=== PATIENT | male | born 1995 | race Caucasian/White ===

== ENCOUNTER 2019-08-03 18:34 | Emergency (ER) | payer MEDICAID, SELFPAY ==
[2019-08-03 18:53] VITALS: BP 142/92; PULSE 88; RESP 17; TEMP 36.6; O2SAT 97; BMI 35.4
--- NOTE | 2019-08-03 19:07 | ED_ITS ---
Entered by Phuong Alva, acting as scribe for Sammy Liu DO Aug 03, 2019 18:34 HPI - Psych General: Chief Complaint: Psychiatric Symptoms Stated Complaint: OUT OF PSYCH MEDS Time Seen by Provider: 08/03/19 19:06 Source: patient Mode of arrival: ambulatory Limitations: no limitations History of Present Illness: HPI Narrative: 23 yo Male presents to ED with complaint of being out of his psychiatric medications. Pt's family states that the patient is out of his psych meds, specifically his Geodon. Pt's family states that the patient was being seen at [facility] but missed appointments due to his family member's work schedule and they put him on walk-in so the patient decided that he wanted to find a new doctor. Pt's family states that they just need some medications to get the patient by until they can get into a new physician. 120mg at bedtime Geodon .2 mg at bedtime Dagmar HAYWARD complaint: other (out of medications) Onset (ago): day(s) (ran out of medications today) Duration: constant History of same: No Relieving factors: medication Exacerbating factors: none Associated psychiatric symptoms: none Associated symptoms: Reports no associated symptoms Treatments prior to arrival: none Review of Systems General: Reports: 10 or more systems reviewed and unremarkable except in HPI and below Const: Denies: fever, chills or body aches Eyes: Denies: change in vision, blurry vision or blind spots ENMT: Denies: throat pain, enlarged tonsils, painful swallowing or hoarseness Card: Denies: chest pain, palpitations or irregular heart rhythm Resp: Denies: shortness of breath, productive cough or non-productive cough GI: Denies: abdominal pain, nausea or vomiting : Denies: flank pain, difficulty urinating, painful urination, urinary frequency or urinary urgency Musc: Denies: neck pain, back pain, extremity pain, extremity swelling or joint pain Skin/Breast: Denies: rash, itching or redness Neuro: Denies: headache, numbness in extremities or weakness in extremities Endo: Denies: excessive urination, excessive thirst or tired all the time PFSH ED PFSH: Statuses (acute, chronic, etc) shown below reflect problem list status as previously entered and may not be historically accurate Social History Smoking and tobacco status: never smoked Physical Exam Const: COMMON NORMALS: no apparent distress, average body habitus, oriented x3, no limitations, healthy appearing, alert and well nourished HENMT: COMMON NORMALS: normocephalic, head/scalp atraumatic, hearing grossly normal bilaterally, external ears normal, EAC's normal, TM's normal bilaterally, external nose normal, nasal mucous membranes and turbinates normal, moist oral mucous membranes, oropharynx normal, dentition normal and gingiva normal HEAD & SCALP: normocephalic and atraumatic NOSE: external nose normal and nasal mucous membranes and turbinates normal EXTERNAL EAR: Yes external ears normal EXTERNAL AUDITORY CANAL: EAC's normal TYMPANIC MEMBRANE: TM's normal bilaterally Eye: COMMON NORMALS: PERRL, EOMs intact bilaterally, conjunctivae normal, no scleral icterus, no papilledema, normal visual rashid by confrontation and fundi normal bilaterally CONJUNCTIVA: Yes conjunctivae normal PUPIL: Yes PERRL DIRECT OPHTHALMOSCOPY: Yes no papilledema and Yes fundi normal bilaterally Neck/C-Spine: COMMON NORMALS: full ROM, no lymphadenopathy, supple, no meningeal signs, no JVD, thyroid normal and no carotid bruits THYROID: thyroid normal Chest: COMMONS NORMALS: inspection of chest normal and palpation of chest normal Resp: COMMON NORMALS: normal respiratory effort, no retractions, no use of accessory muscles, clear to auscultation bilaterally and percussion normal AUSCULTATION: clear to auscultation bilaterally PERCUSSION: percussion normal Cardio: COMMON NORMALS: no JVD, regular rate, regular rhythm, S1 normal heart sound, S2 normal heart sound, no gallops, no clicks, no murmurs, no rub and peripheral pulses 2+ throughout RATE: regular rate RHYTHM: regular rhythm HEART SOUNDS: S1 normal and S2 normal PERIPHERAL PULSES: pulses 2+ throughout GI: COMMON NORMALS: normal to inspection, nondistended, normoactive bowel sounds, soft to palpation, non-tender, no hepatosplenomegaly, no masses and no bruits PALPATION: Yes soft and Yes no hepatosplenomegaly : COMMON NORMALS: Yes no CVA tenderness BLADDER/KIDNEY EXAM: Yes no CVA tenderness Back/Pelvis: COMMON NORMALS: no CVA tenderness, thoracic and lumbar spine normal to inspection, no thoracic nor lumbar tenderness, thoraco-lumbar ROM normal and straight leg raise negative bilaterally Extremity: COMMON NORMALS: normal to inspection, full ROM, normal capillary refill, no joint enlargement, no clubbing, cyanosis or edema, no calf tenderness and no pedal edema Neuro: COMMON NORMALS: oriented x3 SENSORIUM/ORIENTATION: Yes alert MENINGEAL SIGNS: Yes no meningeal signs Skin: COMMON NORMALS: no rashes or lesions noted, no wounds, skin turgor normal, no jaundice, no petechiae and no mottling GENERAL SKIN EXAM: no rashes or lesions noted and turgor normal Discharge Plan Discharge Patient Disposition: Home, Self-Care Clinical Impression: Chronic schizophrenia Condition: Stable Prescriptions: New clonidine HCl 0.2 mg tablet 0.2 mg PO .HS Qty: 10 RF: 0 Geodon 60 mg capsule 120 mg PO .HS Qty: 20 RF: 0 No Action clonidine HCl 0.2 mg Tablet 0.2 mg PO BEDTIME RF: 0 Geodon 60 mg Capsule 120 mg PO BEDTIME RF: 0 Discharge Orders: Discharge Order (Routine); Ordered 08/03/19 Ordered By: Sammy Liu Referrals: Clark Marcelino DO [Primary Care Provider] - Discharge Diet: Usual diet Discharge Activity: Resume usual activity Coding Level of Care Code ED Data Collector for Chg Fwd Exam Problem Focused The documentation recorded by the Nida kemp Carmen, accurately reflects the service I personally performed and the decisions made by , Sammy Liu DO Aug 03, 2019 18:34
--- NOTE | 2019-08-03 19:19 | PC.NURSE ---
Patient has no psychiatric complaints at this time. Presented to ED only for medication refill due to patient recently change primary physicians and ran out of psychiatric medications. Patient calm, cooperative, and appropriate during assessment.
[2019-08-03] MEDS: cloNIDine 0.1 mg Tablet 0.2 MG PO (19:50)
[2019-08-03] MEDS: ziprasidone hcl 60 mg Capsule 120 MG PO (19:51)
[2019-08-03 19:57] VITALS: BP 147/94; PULSE 95; RESP 20; O2SAT 97
== END 2019-08-03 19:47 | disposition home or self-care (01) ==
PROVIDERS: Emergency Provider Family Medicine; PCP Family Medicine
DX: F20.89 Other schizophrenia (principal)
CPT/HCPCS: 99281

== ENCOUNTER 2021-06-09 21:44 | Emergency (ER) | payer MEDICAID, SELFPAY ==
[2021-06-09 21:50] VITALS: BP 161/83; PULSE 105; RESP 18; TEMP 36.6; O2SAT 98; BMI 32.8
--- NOTE | 2021-06-09 21:58 | ED_ITS ---
HPI - Abdominal Pain General: Chief Complaint: Abdominal Pain Stated Complaint: Abd Pain-Vomits vomit Time Seen by Provider: 06/09/21 21:46 History of Present Illness: HPI narrative: Patient is a 25-year-old male comes to the ED with abdominal pain, nausea and vomiting. Patient said he has been having this kind of abdominal symptoms for the past 5 to 6 months. He states that some foods cause him to have bad acid reflux, abdominal pain and sometimes some nausea with vomiting. He saw his PCP approximately 3 days ago and they put him on Prilosec to help with his acid reflux and he has been taking it now for the past couple days. Patient notices after he eats spicy or acidic type foods he develops symptoms. Tonight he was eating some Thanksgiving day food and started developing some abdominal pain along with nausea. Abdominal pain was centrally located and also had some burning epigastric pain as well right after eating. He had an episode of emesis and then felt a lot better. Here in the ED he says he is not having any abdominal pain, nausea or acid reflux symptoms. Patient admits to drinking a lot of soda and eating a lot of chocolate candy over the past couple days. Denies any fever, chills, bladder or bowel symptoms. Associated Symptoms: Reports heartburn (Resolved before coming to ED), nausea (Resolved before coming to ED) and vomiting (Resolved before coming to ED); Denies chills, constipation, diarrhea, dysuria, fever(s), hematochezia and hematuria Review of Systems Const: Denies: fever(s), chills or fatigue Eyes: Denies: change in vision or eye discomfort ENMT: Denies: throat pain, odynophagia, nasal discharge or nasal congestion Card: Denies: chest pain, palpitations, edema, swelling of feet/ankles, dyspnea on exertion or orthopnea Resp: Denies: dyspnea, productive cough or non-productive cough GI: Reports: abdominal pain (Resolved before coming to ED), nausea (Resolved before coming to ED), vomiting (Resolved before coming to ED) and heartburn (Resolved before coming to ED); Denies: diarrhea, constipation or hematochezia : Denies: flank pain, difficulty urinating, dysuria or hematuria Musc: Denies: neck pain, back pain or extremity swelling Skin/Breast: Denies: rash or new lesions Neuro: Denies: headache(s), numbness in extremities or weakness in extremities PFSH ED PFSH: Social History Smoking and tobacco status: never smoked Physical Exam Const: COMMON NORMALS: no acute distress, patient oriented x3, healthy appearing and alert GENERAL APPEARANCE: cooperative and comfortable HENMT: COMMON NORMALS: normocephalic HEAD & SCALP: normocephalic MOUTH: Normal oral and palatal mucosa present THROAT: posterior oropharynx normal and uvula midline Neck/C-Spine: COMMON NORMALS: supple GENERAL: Yes normal visual inspection Resp: COMMON NORMALS: normal respiratory effort, No retractions, No use of accessory muscles and clear to auscultation bilaterally AUSCULTATION: clear to auscultation bilaterally Cardio: COMMON NORMALS: regular rate, regular rhythm, S1 normal heart sound present, S2 normal heart sound present, No gallops present (Cardio), No clicks present (Cardio), No murmurs present (Cardio) and Peripheral pulses 2+ throughout RATE: regular rate RHYTHM: regular rhythm HEART SOUNDS: S1 normal heart sound present and S2 normal heart sound present PERIPHERAL PULSES: Peripheral pulses 2+ throughout GI: COMMON NORMALS: Normal to inspection, nondistended, normoactive bowel sounds present, Soft to palpation, non-tender and no masses PALPATION: Yes Soft to palpation OTHER: Patient had no tenderness throughout the abdomen upon light and deep palpation. Negative Jacobs sign, negative McBurney's point tenderness and negative Rovsing sign. : COMMON NORMALS: Yes no CVA tenderness BLADDER/KIDNEY EXAM: Yes no CVA tenderness Back/Pelvis: COMMON NORMALS: no CVA tenderness Neuro: COMMON NORMALS: patient oriented x3 SENSORIUM/ORIENTATION: Yes alert GAIT: Yes Normal gait present Skin: GENERAL SKIN EXAM: dry skin Course Reevaluation(s): Reevaluation #1: I went in to talk with patient about lab results and image report. Patient was still asymptomatic and says he is not having any abdominal pain nausea or acid reflux symptoms. I discussed with patient about some diet changes that could help his symptoms. Patient was stable for discharge home. I went over return to ED precautions with patient and told him to follow-up with his PCP in the next 5 to 7 days. Time: 23:36 Vital Signs: Vital signs: Vital Signs Temperature 98 F 06/09/21 21:50 Pulse Rate 105 H 06/09/21 21:50 Respiratory Rate 18 06/09/21 21:50 Blood Pressure 161/83 06/09/21 21:50 Pulse Oximetry 98 06/09/21 21:50 MDM - Abdominal Pain MDM Narrative: Medical decision making narrative: Patient is a 25-year-old male comes to the ED with episodes of abdominal pain nausea and vomiting along with acid reflux. Says he has been having the symptoms on and off for the past 5 to 6 months and it mostly correlates with certain foods that he eats. He was recently put on Prilosec by his PCP 3 days ago to help with acid indigestion. Tonight he was eating some Thanksgiving food started getting acid reflux symptoms had nauseous and threw up. He felt better afterwards. Here in the ED he is asymptomatic. He has no abdominal pain, nausea/vomiting or acid reflux. Vital stable. Exam is benign and patient has no palpable abdominal tenderness in all 4 quadrants of abdomen. Labs were unremarkable. KUB showed no acute findings. Since patient is asymptomatic, vitals are stable and he has no abdominal tenderness I think he stable for discharge home and can follow-up with his PCP in 5 to 7 days for reevaluation. I told him to cut back on his caffeine intake and to avoid foods that worsen his symptoms. Informed to continue taking the Prilosec to help with acid indigestion. ED precautions given. Patient understood agree with plan. Lab Data: Attestation: I reviewed the patient's lab results. Labs: Lab Results 06/09/21 06/09/21 06/09/21 22:42 22:42 22:42 WBC 14.0 10^3/uL H 10 ^3/uL (4.0-10.0) RBC 6.02 10^6/uL H 10 ^6/uL (4.1-5.3) Hgb 16.2 g/dL g/dL (11.7-16.6) Hct 49.0 % % (42.0-52.0) MCV 81.4 fl fl (80-94) MCH 26.9 pg L pg (28.0-34.0) MCHC 33.1 g/dL g/dL (30.0-36.0) RDW 14.6 % % (12.1-15.1) Plt Count 378 10^3/cmm 10^3 /cmm (130-400) MPV 9.9 fL fL (7.4-10.4) Neut % (Auto) 64.5 % % Lymph % (Auto) 28.5 % % [place] % (Auto) 5.7 % % Eos % (Auto) 0.6 % % Baso % (Auto) 0.5 % % Neut # (Auto) 9.02 10^3/uL H 10 ^3/uL (1.8-7.7) Lymph # (Auto) 4.0 10^3/uL 10^3/ uL (0.8-4.8) [place] # (Auto) 0.8 10^3/uL 10^3/ uL (0.2-0.9) Eos # (Auto) 0.1 10^3/uL 10^3/ uL (0.0-0.8) Baso # (Auto) 0.1 10^3/uL 10^3/ uL (0.0-0.1) Nucleated RBC % (a uto) 0 % % Nucleated RBCs # 0.0 /100WBC /100W BC Sodium 139 mmol/L mmol/L (136-145) Potassium 3.8 mmol/L mmol/L (3.5-5.1) Chloride 103 mmol/L mmol/L (98-107) Carbon Dioxide 21 mmol/L L mmol/ L (22-29) Anion Gap 18.8 (5-19) BUN 15 mg/dL mg/dL (6-20) Creatinine 0.9 mg/dL mg/dL (0.7-1.2) GFR Calculation 101.2 mL/min mL/m in (90-130) Glucose 89 mg/dL mg/dL (65-115) Calculated Osmolal ity 288 mOsm/kg mOsm/ kg (285-295) Calcium 9.0 mg/dL mg/dL (8.5-10.5) Total Bilirubin 0.5 mg/dL mg/dL (0.15-1.2) AST 30 U/L U/L (0-40) ALT 33 U/L U/L (0-41) Alkaline Phosphata se 140 IU/L H IU/L (40-130) Total Protein 7.8 g/dL g/dL (6.6-8.7) Albumin 4.4 g/dL g/dL (3.5-5.2) Globulin 3.4 g/dL g/dL (1.3-4.6) Lipase 49 U/L U/L (13-60) Urine Color Yellow (Yellow) Urine Appearance Clear (CLEAR) Urine pH 5 (5-7) Ur Specific Gravit y 1.025 (1.005-1.030) Urine Protein Neg (Negative) Urine Glucose (UA) Norm (Normal) Urine Ketones 1+ H (Negative) Urine Blood 2+ H (Negative) Urine Nitrate Negative (Negative) Urine Bilirubin Neg (Negative) Urine Urobilinogen 1 mg/dL H mg/dL (Negative) Ur Leukocyte Georgiana ase Negative (Negative) Urine RBC 5-10 /hpf H /hpf (0-2) Urine WBC 0-4 /hpf H /hpf (0-5) Ur Squamous Epith Cells 0-4 /hpf H /hpf (0-5) Amorphous Sediment Not Reportable Urine Bacteria Trace /hpf /hpf (NONE) Urine Mucus 3+ /hpf /hpf Imaging Data ^: KUB: Attestation: I personally reviewed and interpreted this imaging study as follows: Radiologist's impression: [place] [address] XRay Report Signed Patient: Ruddy Crowley Unit #: [id number] : [id number] Age/Sex: 25 / M ADM Date: 06/09/21 Loc: ER Room/Bed: Attending Dr: Ordering Provider/Ordering MD: Jarvis Montenegro Date of Service: 06/09/21 Procedure(s): XR KUB [id number] Accession Number(s): [id number] Report Number: [id number] PROCEDURE INFORMATION: Exam: XR Abdomen Exam date and time: 06/09/2021 10:08 PM Age: 25 years old Clinical indication: Nausea and vomiting; Additional info: Abdominal pain w/ episode of n/v TECHNIQUE: Imaging protocol: XR of the abdomen. Views: Frontal supine view of the abdomen. 1 View. COMPARISON: No relevant prior studies available. FINDINGS: Gastrointestinal tract: Normal. No bowel dilation. Bones/joints: Unremarkable. XR/XR KUB [id number] IMPRESSION: No acute findings. Radiation Dose CTDIVOL = (mGy): DLP = (mGy-cm) Dictated By: Mukesh Lynn MD Signed By: Mukesh Lynn MD Signed Date/Time: 06/09/212332 DD/ 07 Discharge Plan Discharge Patient Disposition: Home Clinical Impression: Dyspepsia Abdominal pain Qualifiers: Abdominal location: unspecified location Qualified Code(s): R10.9 - Unspecified abdominal pain Condition: Stable Prescriptions: No Action clonidine HCl 0.2 mg Tablet 0.2 mg PO BEDTIME RF: 0 Geodon 60 mg Capsule 120 mg PO BEDTIME RF: 0 clonidine HCl 0.2 mg tablet 0.2 mg PO .HS Qty: 10 RF: 0 Geodon 60 mg capsule 120 mg PO .HS Qty: 20 RF: 0 Discharge Orders: Discharge ED (Routine); Ordered 06/09/21 Ordered By: Jarvis Montenegro Referrals: Clark Marcelino DO [Primary Care Provider] - Discharge Diet: Regular Discharge Activity: Resume usual activity Patient Instructions: Indigestion (ED), Abdominal Pain (ED) Activity Restrictions/Additional Instructions: Follow-up with medical provider as directed in 5 to 7 days for reevaluation. Continue taking all home medications as previously prescribed. Continue taking your recently prescribed Prilosec to help with your acid reflux symptoms. You can also get [id number] Pepto-Bismol or Mylanta to help with symptoms as well as needed. Avoid spicy and greasy foods and try to cut back on caffeine intake. Drink more water. Return to the ER or your medical provider if condition worsens. Please read and understand discharge instructions. Thank you for choosing [facility] for your healthcare needs today. Please realize this is an emergency room and that we are providing you with a medical screening exam and this may not be complete and all inclusive of all the testing and or work up that you may need to determine your ailment or severity of your illness. It is very important that you follow up as instructed or that you return to the Emergency Department should you have concerns or if your condition changes or worsens in any way. Coding Level of Care Code ED Notched Blade Loader for Matthew Fwpaul Exam Comprehensive
--- NOTE | 2021-06-09 22:08 | XRR_ITS ---
PROCEDURE INFORMATION: Exam: XR Abdomen Exam date and time: 06/09/2021 10:08 PM Age: 25 years old Clinical indication: Nausea and vomiting; Additional info: Abdominal pain w/ episode of n/v TECHNIQUE: Imaging protocol: XR of the abdomen. Views: Frontal supine view of the abdomen. 1 View. COMPARISON: No relevant prior studies available. FINDINGS: Gastrointestinal tract: Normal. No bowel dilation. Bones/joints: Unremarkable. XR/XR KUB [id number] IMPRESSION: No acute findings. Radiation Dose CTDIVOL = (mGy): DLP = (mGy-cm)
[2021-06-09 22:47] LABS: Basophils # 0.1 10^3/uL (0.0-0.1); Basophils % 0.5 %; Eosinophils # 0.1 10^3/uL (0.0-0.8); Eosinophils % 0.6 %; Hemoglobin 16.2 g/dL (11.7-16.6); Lymphocytes % 28.5 %; Mean Corpuscular HGB Conc 33.1 g/dL (30.0-36.0); Mean Corpuscular Hemoglobin 26.9 pg (28.0-34.0); Mean Corpuscular Volume 81.4 fl (80-94); Mean Platelet Volume 9.9 fL (7.4-10.4); Monocytes # 0.8 10^3/uL (0.2-0.9); Monocytes % 5.7 %; Neutrophils # 9.02 10^3/uL (1.8-7.7); Neutrophils % 64.5 %; Nucleated Red Blood Cells % 0 %; Platelet Count 378 10^3/cmm (130-400); Red Blood Count 6.02 10^6/uL (4.1-5.3); Red Cell Distribution Width 14.6 % (12.1-15.1)
[2021-06-09 23:03] LABS: Alanine Aminotransferase 33 U/L (0-41); Albumin Level 4.4 g/dL (3.5-5.2); Alkaline Phosphatase 140 IU/L (40-130); Anion Gap 18.8 (5-19); Aspartate Amino Transferase 30 U/L (0-40); Blood Urea Nitrogen 15 mg/dL (6-20); Carbon Dioxide 21 mmol/L (22-29); Chloride 103 mmol/L (98-107); Creatinine Clr Calc Pharmacy 148.8343; Globulin 3.4 g/dL (1.3-4.6); Glomerular Filtration Rate 101.2 mL/min (90-130); Glucose 89 mg/dL (65-115); Lipase 49 U/L (13-60); Osmolality Calculated 288 mOsm/kg (285-295); Potassium 3.8 mmol/L (3.5-5.1); Sodium 139 mmol/L (136-145); Total Bilirubin 0.5 mg/dL (0.15-1.2); Total Protein 7.8 g/dL (6.6-8.7)
[2021-06-09 23:07] LABS: Add Urine Culture? No; Add Urine Microscopic? YES; Bacteria Urine TRACE /hpf; Bilirubin Urine Neg (Negative); Blood Urine 2+ (Negative); Glucose Urine UA Norm (Normal); Ketones Urine 1+ (Negative); Leukocyte Esterase Urine Negative (Negative); Mucus Urine 3+ /hpf; Nitrate Urine Negative (Negative); Protein Urine Neg (Negative); Specific Gravity, Urine 1.025 (1.005-1.030); Squamous Epithelial Cell Urine 0-4 /hpf (0-5); Urine Appearance Clear (CLEAR); Urine Color Yellow (Yellow); Urobilinogen Urine 1 mg/dL (Negative); WBC Urine 0-4 /hpf (0-5); pH Urine 5 (5-7)
[2021-06-09 23:48] VITALS: BP 139/79; PULSE 82; RESP 18; O2SAT 96
== END 2021-06-09 23:50 | disposition home or self-care (01) ==
PROVIDERS: Emergency Provider Physician Assistant; PCP Family Medicine
DX: R10.13 Epigastric pain (principal); R10.9 Unspecified abdominal pain
CPT/HCPCS: 74018; 80053; 81001; 83690; 85025; 99282

== ENCOUNTER 2024-10-17 11:03 | Outpatient (CLI) | payer MEDICAID, SELFPAY ==
--- NOTE | 2024-10-17 11:07 | US_ITS ---
WS: [id number] RIGHT UPPER QUADRANT ULTRASOUND HISTORY: CHRONIC GERD COMPARISON: None available. Liver: 16.1 cm in length. Normal size liver and echogenicity. No bile duct dilatation or mass. Portal Vein: Normal hepatopetal flow with monophasic waveform. Gallbladder: Normally distended gallbladder with no stones or wall thickening. CBD: 0.4 cm Pancreas: Not visualized. Right kidney: 10.9 cm in length. Normal size and echogenicity. No hydronephrosis or mass. Aorta and IVC: Unremarkable abdominal aorta and IVC. No ascites. US/US gall bladder [id number] IMPRESSION: 1. Normal gallbladder. 2. Nonvisualization of the pancreas. Otherwise negative RIGHT upper quadrant u ltrasound.
== END 2024-10-17 11:04 | disposition home or self-care (01) ==
LOC: RAD 11:05
PROVIDERS: PCP Family Medicine; Visit Provider Nurse Practitioner
DX: T78.40XA Allergy, unspecified, initial encounter (principal); B37.0 Candidal stomatitis; F84.5 Asperger's syndrome; E55.9 Vitamin D deficiency, unspecified; K21.9 Gastro-esophageal reflux disease without esophagitis; F42.9 Obsessive-compulsive disorder, unspecified; E66.9 Obesity, unspecified; Z92.29 Personal history of other drug therapy
CPT/HCPCS: 76705